=== PATIENT | male | born 1985 | race Caucasian/White ===

== ENCOUNTER 2020-03-02 07:54 | Emergency (ER) | payer SELFPAY ==
[2020-03-02] MEDS ORDERED: Acetaminophen/HYDROcodone 325-5 MG Tab PO ONE (08:24)
[2020-03-02] MEDS ORDERED: Lidocaine 2% Viscous Solution 15 ML Cup PO ONE ×2 (08:26→08:30)
[2020-03-02] MEDS ORDERED: Benzocaine 20% Topical Spray UD MUCMEM ONE (08:30)
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
[2020-03-02 09:37] LABS: BLOOD UREA NITROGEN,BUN 16 mg/dL (7.0-18.0); CARBON DIOXIDE,CO2 28.7 mmol/L (21.0-32.0); CHLORIDE,CL 106 mmol/L (98-107); GLUCOSE RANDOM 108 mg/dL (74-106); POTASSIUM,K 4.3 mmol/L (3.5-5.1); SODIUM,NA 144 mmol/L (136-148)
--- NOTE | 2020-03-02 09:41 | CR ---
Indication: Chest pain and heartburn Technique: Chest 2 views Comparison: None Findings: Cardiovascular and mediastinum: Heart size and vasculature are normal in caliber and appearance. Lungs and pleural spaces: Lungs are clear. No sign of infiltrate or mass. No sign of pleural effusion. No pneumothorax. Bones and soft tissues: No significant findings. Impression: Normal chest. Dictated by Ector Almaraz MD @ Mar 02 2020 9:39AM Signed by Dr. Ector Almaraz @ Mar 02 2020 9:39AM
== END 2020-03-02 10:07 | disposition home or self-care (01) ==
LOC: MW.ED 07:54
DX: K04.7 Periapical abscess without sinus (principal); R12 Heartburn; Z87.891 Personal history of nicotine dependence
CPT/HCPCS: 36415; 71046; 80053; 82550; 84484; 85025; 93005; 99284; A9270